=== PATIENT | female | born 1960 | race Caucasian/White ===

== ENCOUNTER 2020-05-17 10:11 | Outpatient (CLI) | payer BC, SELFPAY ==
--- NOTE | ~2020-05-17 | MM_ITS ---
EXAMINATION: MM screening [place] BI w stu HISTORY: Screening TECHNIQUE: Craniocaudal and mediolateral oblique 3-D tomosynthesis images were obtained and synthetic 2-D images were generated. CAD analysis was submitted and interpreted. COMPARISON: Comparison to multiple prior studies sequentially, with oldest reviewed study dated 12/13. BREAST PARENCHYMAL COMPOSITION: There are scattered areas of fibroglandular density. FINDINGS: There is no evidence of suspicious mass, calcification, or architectural distortion to sugg est malignancy in either breast. There has been no suspicious interval change. IMPRESSION: 1. No mammographic evidence of malignancy. 2. Recommend routine screening mammography in one year. BI-RADS Category 1: Negative Reviewed, dictated and finalized at location A. ER MARBLE FINISHER
== END 2020-05-17 10:12 | disposition home or self-care (01) ==
LOC: ANHIMG 10:15
PROVIDERS: PCP Family Medicine; Visit Provider Nurse Practitioner Obstetrics & Gynecology
DX: Z12.31 Encounter for screening mammogram for malignant neoplasm of breast (principal)
CPT/HCPCS: 77063; 77067

== ENCOUNTER 2022-05-17 13:37 | Outpatient (CLI) | payer BC, SELFPAY ==
--- NOTE | ~2022-05-17 | MM_ITS ---
EXAMINATION: MM screening [place] BI w stu HISTORY: Screening mammogram TECHNIQUE: Craniocaudal and mediolateral oblique 3-D tomosynthesis images were obtained and synthetic 2-D images were generated. CAD analysis was submitted and interpreted. COMPARISON: 05/17/2020, 08/21/2018, 05/11/2017 bilateral screening mammogram examinations BREAST PARENCHYMAL COMPOSITION: The breasts are almost entirely fatty. FINDINGS: Stable circumscribed benign-appearing probable intramammary lymph nodes in the far posterio r breast... There is no evidence of suspicious mass, calcification, or architectural distortion to bingham ggest malignancy in either breast. There has been no suspicious interval change. IMPRESSION: 1. No mammographic evidence of malignancy. 2. Recommend routine screening mammography in one year. BI-RADS Category 2: Benign finding(s). Reviewed, dictated and finalized at location A. K CLEANER
== END 2022-05-17 13:38 | disposition home or self-care (01) ==
LOC: ANHIMG 13:39
PROVIDERS: PCP Family Medicine; Visit Provider Nurse Practitioner Obstetrics & Gynecology
DX: Z12.31 Encounter for screening mammogram for malignant neoplasm of breast (principal)
CPT/HCPCS: 77063; 77067

== ENCOUNTER 2023-05-22 01:04 | Day surgery (SDC) | payer BC, SELFPAY ==
[2023-04-25 08:29] VITALS: BMI 38.0
--- NOTE | 2023-05-18 12:50 | SUR.PREOP ---
Patient called regarding upcoming procedure. Reviewed preop instructions, appointment times, and procedure prep.
--- NOTE | 2023-05-21 16:01 | PM.HPGS ---
History of Present Illness History of Present Illness Consent: Risks, benefits, and alternatives have been discussed and questions answered. Patient agrees to proceed with procedure. Chief complaint: neoplasm screening Narrative: Kathy Brady is a 62 year old female Referred for colon cancer screening. Her last colonoscopy was 10 years ago. Review of Systems Review of Systems: All systems reviewed & are unremarkable except as noted in HPI and below PMFSH Past Medical History Medical History Dyslipidemia 06/20/2017 Essential (primary) hypertension Hypothyroidism Obesity (BMI 30-39.9) CARLOS (obstructive sleep apnea) Surgical History Surgical History History of arthroplasty of left hip total - 02/2012 History of tonsillectomy 1972 Family History Family History Other Carcinoma of colon Hypertension Social History Social History Social History: Caffeine-occasionally Smoking status: Never smoker Second hand tobacco smoke exposure: No Alcohol intake: current Alcohol use details: 2 drinks monthly Substance use: never Substance use type: does not use Lack of Transportation: No Lack of Food: Never True Current Housing: I Have Housing Concerned About Future Housing: No Difficulty Paying Gas/Electric Bills: No Difficulty Paying for Meds: No Currently Unemployed: No Education: High School Diploma/GED Difficulty w/ Childcare or Family Care: No Living arrangements: with family Additional living arrangements comments: Occupation/Education: retired Gender identity (if verbalized by the patient): Female Sexual Orientation (if Verbalized by the Patient): Straight or Heterosexual Spiritual care concerns: No Meds Home Medications and Allergies Home Medications Medication Instructions Recorded Confirmed Type atorvastatin 20 mg tablet 20 mg PO DAILY #90 tabs 02/07/23 04/26/23 Rx levothyroxine 112 mcg capsule 112 mcg PO DAILY #90 caps 02/07/23 04/26/23 Rx losartan 50 mg tablet 50 mg PO DAILY #90 tabs 02/07/23 04/26/23 Rx Allergies Allergy/AdvReac Type Severity Reaction Status Date / Time No Known Allergies Allergy Verified 04/26/23 08:48 Exam Const: General: alert Orientation/consciousness: patient oriented x3 Resp: Auscultation: clear to auscultation bilaterally Cardio: Rhythm: regular rhythm GI: GI Palp: Yes Soft to palpation and No Tenderness to palpation present (GI) Neuro: General: patient oriented x3 Assessment and Plan Assessment and plan (1) Colon cancer screening: Code(s): Z12.11 - Encounter for screening for malignant neoplasm of colon Status: Acute Assessment and Plan: Colonoscopy with possible biopsy or polypectomy or cautery or injection of substances.
[2023-05-22 06:41] VITALS: BP 144/78; PULSE 77; RESP 20; TEMP 36.2; O2SAT 100; BMI 39.4
[2023-05-22] MEDS: LACTATED RINGERS 1,000 ML 150 ML IV CONT (07:10)
--- NOTE | 2023-05-22 07:29 | WPDANESEPPF ---
Anes - Initial Pre Proc Eval Procedure: Operation Date: 05/22/23 08:00 Proposed Procedures p Colonoscopy - Linwood Trammell MD Date/Time: 05/22/23 07:29 Surgeon: Linwood Trammell MD Pre Op Diagnosis: neoplasm screening Patient Data Age: 62 Gender: F Height: 1.73 m Weight: 117.5 kg Last Vital Signs Temp 97.1 F L 05/22/23 06:41 Pulse 77 05/22/23 06:41 Resp 20 05/22/23 06:41 BP 144/78 H 05/22/23 06:41 Pulse Ox 100 05/22/23 06:41 O2 Del Method Room Air 05/22/23 06:41 Allergies Allergy/AdvReac Type Severity Reaction Status Date / Time No Known Allergies Allergy Verified 04/26/23 08:48 Home Medications Medication Instructions Recorded Confirmed Type atorvastatin 20 mg tablet 20 mg PO DAILY #90 tabs 02/07/23 04/26/23 Rx levothyroxine 112 mcg capsule 112 mcg PO DAILY #90 caps 02/07/23 04/26/23 Rx losartan 50 mg tablet 50 mg PO DAILY #90 tabs 02/07/23 04/26/23 Rx Patient hx anesthesia problems: none Family hx anesthesia problems: none Results Review: All pre-operative results and documents have been reviewed as part of the pre-operative evaluation. [facility] Past Medical History Medical History Dyslipidemia 06/20/2017 Essential (primary) hypertension Hypothyroidism Obesity (BMI 30-39.9) CARLOS (obstructive sleep apnea) Surgical History Surgical History History of arthroplasty of left hip total - 02/2012 History of tonsillectomy 1972 Family History Family History Other Carcinoma of colon Hypertension Social History Social History Social History: Caffeine-occasionally Smoking status: Never smoker Second hand tobacco smoke exposure: No Alcohol intake: current Alcohol use details: 2 drinks monthly Substance use: never Substance use type: does not use Lack of Transportation: No Lack of Food: Never True Current Housing: I Have Housing Concerned About Future Housing: No Difficulty Paying Gas/Electric Bills: No Difficulty Paying for Meds: No Currently Unemployed: No Education: High School Diploma/GED Difficulty w/ Childcare or Family Care: No Living arrangements: with family Additional living arrangements comments: Occupation/Education: retired Gender identity (if verbalized by the patient): Female Sexual Orientation (if Verbalized by the Patient): Straight or Heterosexual Spiritual care concerns: No Anes - Eval Final PreProcedure Day of Procedure 05/22/23 07:29 Patient weight: morbidly obese Heart: regular rate and rhythm Lungs: clear to auscultation Airway: Mallampati scale class II Neurological: alert and oriented Last oral intake: >/= 8 hours ASA classification: III Emergent: no Anesthetic plan: proceed Anesthesia type and monitoring: general GIVS and standard monitoring Results Review: All pre-operative results and documents have been reviewed as part of the pre-operative evaluation. Informed Consent: The patient's anesthetic plan and its attendant risks and benefits were discussed with the patient/family/POA. Questions were solicited and answers provided to the satisfaction of the patient/family/POA.
[2023-05-22 08:10] VITALS: BP 89/54; PULSE 65; RESP 20; O2SAT 98
[2023-05-22 08:20] VITALS: BP 99/53; PULSE 61; RESP 20; O2SAT 97
[2023-05-22 08:30] VITALS: BP 105/57; PULSE 63; RESP 20; O2SAT 100
== END 2023-05-22 08:42 | disposition home or self-care (01) ==
PROVIDERS: PCP Nurse Practitioner Family; Visit Provider Internal Medicine Gastroenterology
PROC: 0DJD8ZZ Inspection of Lower Intestinal Tract, Via Natural or Artificial Opening Endoscopic (ICD-10-PCS; CPT 45378; principal; 2023-05-22 08:00)
DX: Z12.11 Encounter for screening for malignant neoplasm of colon (principal); D12.4 Benign neoplasm of descending colon; I10 Essential (primary) hypertension; E78.5 Hyperlipidemia, unspecified; E03.9 Hypothyroidism, unspecified; G47.33 Obstructive sleep apnea (adult) (pediatric); E66.01 Morbid (severe) obesity due to excess calories; Z68.39 Body mass index [BMI] 39.0-39.9, adult
CPT/HCPCS: 45380; 88305; J2704; J7120

== ENCOUNTER 2023-10-29 11:15 | Outpatient (CLI) | payer BC, SELFPAY ==
--- NOTE | ~2023-10-29 | XR_ITS ---
3 VIEWS LUMBAR SPINE Ordering provider: Latosha Waldrop APRN History: . Z96.649 - Presence of unspecified artificial hip joint . Comparison: None. FINDINGS: VERTEBRAL BODIES:Minimal anterolisthesis at the level of L2-L3. Otherwise, No visible fracture or bingham bluxation. Degenerative changes of the spine. DISK SPACES: Narrowing of the disc L2-L3, and L5-S1. Facet joint disease at the level of L4-L5 and L5 -S1. SOFT TISSUES: Vascular calcifications. Left hip arthroplasty. IMPRESSION: No acute osseous abnormality lumbar spine. Consider follow up MRI lumbar spine if there is concern for spinal stenosis/neural impingement. Reviewed, dictated and finalized at location A. IMPRESSION: No acute osseous abnormality lumbar spine. Consider follow up MRI lumbar spine if there is concern for spinal stenosis/isadora ral impingement.
--- NOTE | ~2023-10-29 | XR_ITS ---
AP and lateral views of the left hip Clinical history: Arthroplasty follow-up Findings: No acute fracture or dislocation is seen. Left hip arthroplasty in place. No hardware convo cation seen. Soft tissues are unremarkable. Impression: Left hip arthroplasty in place. No acute abnormality. Reviewed, dictated and finalized at location . Impression: Left hip arthroplasty in place. No acute abnormality.
== END 2023-10-29 11:16 ==
PROVIDERS: PCP Family Medicine; Visit Provider Nurse Practitioner Family
DX: M25.552 Pain in left hip (principal); M54.50 Low back pain, unspecified; Z96.649 Presence of unspecified artificial hip joint
CPT/HCPCS: 72110; 73502

== ENCOUNTER 2023-11-29 09:43 | Outpatient (CLI) | payer BC, SELFPAY ==
--- NOTE | ~2023-11-29 | MM_ITS ---
EXAMINATION: MM screening [place] BI w stu HISTORY: Screening TECHNIQUE: Craniocaudal and mediolateral oblique 3-D tomosynthesis images were obtained and synthetic 2-D images were generated. CAD analysis was submitted and interpreted. COMPARISON: Comparison to multiple prior studies sequentially, with oldest reviewed study dated 03/23. BREAST PARENCHYMAL COMPOSITION: Not Dense: The breasts are almost entirely fatty. FINDINGS: There is no evidence of suspicious mass, calcification, or architectural distortion to sugg est malignancy in either breast. There has been no suspicious interval change. IMPRESSION: 1. No mammographic evidence of malignancy. 2. Recommend routine screening mammography in one year. BI-RADS Category 1: Negative Reviewed, dictated and finalized at location B.
== END 2023-11-29 09:44 | disposition home or self-care (01) ==
LOC: ANHIMG 09:45
PROVIDERS: PCP Nurse Practitioner Family; Visit Provider Nurse Practitioner Obstetrics & Gynecology
DX: Z12.31 Encounter for screening mammogram for malignant neoplasm of breast (principal)
CPT/HCPCS: 77063; 77067

== ENCOUNTER 2023-12-03 10:25 | Outpatient (CLI) | payer BC, SELFPAY ==
--- NOTE | ~2023-12-03 | MR_ITS ---
EXAMINATION: MR lumbar spine wo con DATE: 12/03/2023 11:16 INDICATION: Other specified dorsopathies, lumbar region. Low back pain. TECHNIQUE: Magnetic resonance imaging (MRI) of the lumbar spine was performed without intravenous con trast. Sequences included sagittal T2-weighted FSE, sagittal T2-weighted FS FSE, sagittal T1-weighted FSE, and axial T2-weighted FSE. COMPARISON: Lumbar spine radiographs 10/29/2023 FINDINGS: There is 3 mm retrolisthesis of L2 on L3 and L3 on L4. Vertebral body heights are normal. T here is mildly decreased disc height at L4-L5 and severely decreased disc height at L5-S1. The distal spinal cord signal intensity is normal. The conus medullaris is at L1. The following disc levels are specifically discussed: L1-L2: The disc does not extend beyond the endplate margin. There is mild bilateral facet joint osteo arthritis. There is no neural foraminal stenosis. There is no central canal stenosis. L2-L3: The disc does not extend beyond the endplate margin. There is mild right and moderate left fac et joint osteoarthritis. There is no neural foraminal stenosis. There is no central canal stenosis. L3-L4: There is a left foraminal protrusion. There is mild bilateral facet joint osteoarthritis. Ther e is mild bilateral neural foraminal stenosis. There is no central canal stenosis. L4-L5: The disc is bulging. There is severe bilateral facet joint osteoarthritis. There is mild bilat eral neural foraminal stenosis. There is mild central canal stenosis. L5-S1: The disc is bulging and has an annular fissure. There is severe right and moderate left facet joint osteoarthritis. There is mild bilateral neural foraminal stenosis. There is no central canal st enosis. IMPRESSION: 1. Severe lower lumbar spondylosis. Reviewed, dictated and finalized at location A.
== END 2023-12-03 10:26 ==
LOC: GOSHIMG 10:27
PROVIDERS: PCP Nurse Practitioner Family; Visit Provider Nurse Practitioner Family
DX: M43.06 Spondylolysis, lumbar region (principal); M53.86 Other specified dorsopathies, lumbar region
CPT/HCPCS: 72148

== ENCOUNTER 2024-12-31 11:00 | Outpatient (CLI) | payer BC, SELFPAY ==
--- NOTE | ~2024-12-31 | XR_ITS ---
EXAMINATION: [id number], 12/31/2024 11:05 CDT HISTORY: Pain in left knee x 3 weeks, no inj, no surg COMPARISON: No comparisons available. Findings: No acute fracture or malalignment. No significant degenerative changes. Soft tissues unremarkable. Impression: No acute fracture or malalignment. Reviewed, dictated and finalized at location A. Impression: No acute fracture or malalignment.
== END 2024-12-31 11:01 | disposition home or self-care (01) ==
LOC: GOSHIMG 11:01
PROVIDERS: PCP Family Medicine; Visit Provider Nurse Practitioner Family
DX: M25.562 Pain in left knee (principal)
CPT/HCPCS: 73560

== ENCOUNTER 2025-02-11 10:06 | Outpatient (CLI) | payer BC, SELFPAY ==
--- NOTE | ~2025-02-11 | MR_ITS ---
EXAMINATION: MR knee LT wo con DATE: 02/11/2025 10:40 INDICATION: Left knee pain TECHNIQUE: Magnetic resonance imaging (MRI) of the left knee was performed without intravenous contrast. Sequences included coronal PD-weighted FSE, coronal PD-weighted FS FSE, sagittal T2-weighted FSE, sagittal PD-weighted FS FSE and axial PD weighted fat saturated FSE. COMPARISON: None. FINDINGS: Medial compartment: Medial meniscus is normal. Small region of partial-thickness chondral fissuring involving up to 50% the cartilage thickness and without degenerative subchondral changes at the anterior weightbearing medial femoral condyle. Lateral compartment: Lateral meniscus is normal. Articular cartilage is normal. Patellofemoral compartment: And extensive deep patellar chondral ulceration involving greater than 50% the cartilage thickness with mild subarticular edema-like signal change at the inferior aspect of the lateral patellar facet and at the cephalad aspect of the apical ridge. Small partial-thickness chondral fissure without degenerative subchondral changes at the cephalad aspect of the trochlear groove. Ligaments and tendons: Anterior and posterior cruciate ligaments are normal. The medial collateral ligament and fibular collateral ligament complex are normal. Mild distal quadriceps tendinopathy without discrete tear. Patellar tendon is normal. The visualized medial and lateral hamstring tendons as well as the iliotibial band are normal. Fluid: Physiologic amount of fluid in the joint space. No loose osteochondral bodies identified. Osseous/other: No fracture or pathologic marrow replacing process. IMPRESSION: 1. 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 2. Mild osteoarthritic the medial compartment small region of moderate grade chondral malacia along the anterior weightbearing medial femoral condyle. 3. Mild distal quadriceps tendinopathy without tear. Reviewed, dictated and finalized at location A. IMPRESSION: 1. Mild patellofemoral osteoarthritis with extensive moderate to high-grade pat ellar chondromalacia. 2. Mild osteoarthritic the medial compartment small region of moderate grade ch ondral malacia along the anterior weightbearing medial femoral condyle. 3. Mild distal quadriceps tendinopathy without tear.
== END 2025-02-11 10:07 | disposition home or self-care (01) ==
LOC: MICIMG 10:07
PROVIDERS: PCP Nurse Practitioner Family; Visit Provider Nurse Practitioner Family
DX: M17.12 Unilateral primary osteoarthritis, left knee (principal)
CPT/HCPCS: 73721